=== PATIENT | female | born 1955 | race Caucasian/White ===

== ENCOUNTER 2018-01-27 20:11 | Inpatient (IN) ==
[2018-01-27] MEDS ORDERED: Ketorolac 30 MG/ML VIAL IVP PRN (22:36)
[2018-01-27] MEDS ORDERED: Acetaminophen 325 MG TABLET PO PRN (22:36)
[2018-01-27] MEDS ORDERED: Naloxone 0.4 MG/ML INJ IVP PRN (22:36)
[2018-01-27] MEDS ORDERED: *HR* Promethazine 25 MG/ML VIAL IVP PRN ×2 (22:36→23:00)
[2018-01-27] MEDS ORDERED: Ondansetron 4 MG/2 ML VIAL IVP PRN (22:36)
[2018-01-27] MEDS ORDERED: Ipratropium/Albuterol Neb 3 ML IH PRN (22:42)
[2018-01-27] MEDS ORDERED: 0.9 % Sodium Chloride 1,000 ML IVC SCH (22:45)
--- NOTE | 2018-01-27 22:47 | Internal Med History&Physical ---
Date of Encounter: 01/27/18 Time of Encounter: 22:20 Assessment and Plan (1) Pyelonephritis Current visit: Yes Status: Acute Patient has left-sided flank pain, nausea, vomiting, increased urination frequency. Consider pyelonephritis. - Rocephin iv started in [facility], will continue - Continue IV fluid - Urology consult for ureteral stone (2) Ureteral stone Current visit: Yes Status: Acute Urology consult. Keep patient nothing by mouth from midnight for possible procedure. - Continue IV fluid, pain medication for pain control. - Closely monitor patient in telemetric (3) COPD (chronic obstructive pulmonary disease) Current visit: Yes Status: Acute Stable. Continue DuoNeb when necessary. Continue home medication after verification Qualifiers: COPD type: emphysema Emphysema type: unspecified Qualified Code(s): J43.9 - Emphysema, unspecified (4) CHF (congestive heart failure) Current visit: Yes Status: Acute Appears euvolemic at this point. Careful IV fluid hydration as patient has nausea vomiting. Closely monitor patient Qualifiers: Heart failure type: unspecified Heart failure chronicity: chronic Qualified Code(s): I50.9 - Heart failure, unspecified (5) Hypertension Current visit: Yes Status: Acute Place patient on hydralazine IV when necessary. Resume home medication after verification Qualifiers: Hypertension type: essential hypertension Qualified Code(s): I10 - Essential (primary) hypertension (6) DVT prophylaxis Current visit: Yes Status: Acute EPCD, may start anticoagulation after surgery (7) Hypokalemia Current visit: Yes Status: Acute Potassium supplement has been given in emergency room. Continue symptomatic treatment for nausea and vomiting. Repeat BMP in a.m. Internal Medicine - H&P: HPI Chief complaint: Left flank pain Admitted From: Home Plans for Post Hospital Care: Home History of present illness: Ms. Garner is a 62 year old female with history of COPD asthma, hypertension, CHF, presented to [facility] for left flank pain since this afternoon. Patient has nausea, vomiting. The vomiting are yellowish fluid. Patient denies a fever. Patient has no dysuria or burning sensation on urination. She do report increased frequency of urination. In the [facility], CT abdomen shows left side ureteral stone 5 mm and a nonobstructive stone 9 mm. patient also was found hypokalemia with potassium 2.6. Patient was treated with Rocephin 2 g and by mouth potassium 50mEq, and the pain medication and IV fluid. Patient was transferred to our hospital for further management. Urology consult was called by Jean Marie BURLESON through [employer] management three-way conversation. Past Med Surg Social Fam HX - Past Medical History Medical history: asthma, CHF, COPD, hypertension - Past Surgical History Surgical History: cholecystectomy, hysterectomy - Family History Mother History Unknown: Yes Internal Medicine - H&P: Meds 3 Allergy/AdvReac Type Severity Reaction Status Date / Time ibuprofen [From Motrin] Allergy Hives Verified 01/27/18 22:52 Penicillins Allergy Hives Verified 01/27/18 22:52 divalproex sodium AdvReac Anxiety Verified 01/27/18 22:52 [From Depakote] tramadol [From Ultram] AdvReac Seizure Verified 01/27/18 22:52 IVP dye Allergy Difficulty Uncoded 01/27/18 22:52 Breathing All Systems PM: A 10-system review of systems was performed and is negative for pertinent findings except as documented above in the HPI. - Constitutional Vitals: Temp Pulse Resp BP Pulse Ox 97.6 F 96 18 163/106 97 01/27/18 22:10 01/27/18 22:10 01/27/18 22:10 01/27/18 22:10 01/27/18 22:10 General appearance: Present: A&O X 3, severe distress, answers questions appropriately - Head Head exam: Present: atraumatic, normocephalic - Eye Eye exam: Present: PERRL, conjuntiva pink, sclera anicteric Pupils: Present: PERRL - Neck Neck exam general surgery: Present: supple, trachea midline. Absent: lymphadenopathy - Respiratory Respiratory exam: Present: CTAB. Absent: accessory muscle use, rales, rhonchi, wheezes - Cardiovascular Cardiovascular exam: Present: RRR, +S1, +S2. Absent: diastolic murmur, gallop, rubs, systolic murmur - GI/Abdominal GI/Abdominal exam: Present: normal bowel sounds, soft, tenderness (Tenderness on left lower quadrant, no guarding or rebound), no peritoneal signs. Absent: distended Additional comments: CVAT positive bilaterally - Extremities Exam Extremities exam: Present: warm, radial pulses palpable and symmetrical. Absent : calf tenderness, cyanotic, pedal edema Additional comments: Patient has a chronic right shoulder pain on sling - Neurological Exam Neurological exam: Present: CN II-XII intact, oriented X3, no focal deficits. Absent: pronater drift, facial droop, speech deficit - Skin Skin exam: Present: dry, intact
[2018-01-27] MEDS ORDERED: Potassium Chloride 40 MEQ, Lidocaine 1% 2 ML in D5% in Water 500 ML IVPB ONE (22:58)
[2018-01-27] MEDS: OXYCODONE Oral CONC 10 MG/0.5 ML ORAL.SYG SL PRN (23:25)
[2018-01-28] MEDS: Ketorolac 30 MG/ML VIAL IVP PRN ×3 (01:22→18:55)
[2018-01-28 05:02] LABS: Basophils % 0.1 %; Hematocrit 33.8 % (35.3-44.9); Hemoglobin 10.8 g/dL (11.5-15.4); INR 1.1; Immature Granulocytes % 0.5 % (0-4); Lymphocytes # 0.5 K/mcL (0.6-4.6); Lymphocytes % 2.7 %; Mean Corpuscular Hemoglobin 27.4 pg (28.0-33.3); Mean Corpuscular Volume 85.8 fL (83.0-100.0); Mean Platelet Volume 9.3 fL (9.4-12.4); Monocytes % 9.3 %; Neutrophils # 15.5 K/mcL (1.6-8.9); Platelet Count 221 K/mcL (140-400); Prothrombin Time 11.5 Seconds (9.4-12.1); Red Blood Count 3.94 M/mcL (3.82-4.97); Red Cell Distribution Width 15.9 % (11.5-14.5); Segmented Neutrophils % 87.4 %
[2018-01-28 05:17] LABS: Calcium 7.6 mg/dL (8.6-10.3); Potassium 3.6 mEq/L (3.5-5.1)
[2018-01-28 05:25] LABS: Monocytes # 1.7 K/mcL (0.0-1.3)
[2018-01-28 05:26] LABS: Platelet Estimate Normal (Normal)
--- NOTE | 2018-01-28 08:57 | Urology - Consult Note ---
Date of Encounter: 01/28/18 Time of Encounter: 08:55 - Assessment and Plan (1) Nausea & vomiting Current Visit: Yes Status: Acute Assessment and plan: This is much improved at this time with IV fluids and nausea medication. Qualifiers: Vomiting type: unspecified Vomiting Intractability: non-intractable Qualified Code(s): R11.2 - Nausea with vomiting, unspecified (2) Elevated serum creatinine Current Visit: Yes Status: Acute Assessment and plan: Slight elevation most likely secondary to dehydration from vomiting as well as obstruction from left UPJ stone will improve with IV fluids as well as ureteral stent today. (3) Pyelonephritis Current Visit: Yes Status: Acute Assessment and plan: Continue with broad-spectrum antibiotics at this time until cultures return. (4) Ureteral stone Current Visit: Yes Status: Acute Assessment and plan: Plan on cystoscopy and left ureteral stent placement in the operating room today. Urology CN:ANNETTE Consult date: 01/28/18 Reason for consult Urology: Hydronephrosis Requesting physician: Hubert Shipman History of present illness: Jb is a 62-year-old female who was transferred from an outside facility secondary to obstructing left UPJ stone. Patient has had persistent nausea and vomiting over the past day. Her pain was a 10 out of 10 in nature located in her left kidney with no radiation. This pain is currently controlled. Patient was also found to have a low potassium as well as an elevated WBC count. Patient has multiple medical problems mostly related to smoking history. Patient has had kidney stones in the past underwent some sort of procedure last summer at an outside facility. Patient is unsure what surgery she had done. CT scan was personally reviewed which revealed a left 3-4 mm UPJ stone with a larger left renal pelvis stone. Past Med Surg Social Fam HX - Past Medical History Medical history: asthma, CHF, COPD, hypertension Psychiatric history: no psych history - Past Surgical History Surgical History: cholecystectomy, hysterectomy - Social History Smoking Status: Former smoker Smokeless Tobacco Status: No Alcohol use: none Drug use: none - Family History Mother History Unknown: Yes Medications and Allergies Albuterol Neb [Proventil Neb] 2.5 mg IH Q4-6H PRN 01/28/18 [History] Amitriptyline HCl 100 mg PO HS 01/28/18 [History] Atorvastatin [Lipitor] 40 mg PO HS 01/28/18 [History] Ergocalciferol (VITAMIN D2) [Vitamin D2] 50,000 unit PO QWEEK 01/28/18 [History] Fluticasone Propionate [Flovent Hfa] 2 puff IH BID 01/28/18 [History] Folic Acid 1 mg PO DAILY 01/28/18 [History] Furosemide [Lasix] 40 mg PO DAILY 01/28/18 [History] Gabapentin [Neurontin] 300 mg PO BID 01/28/18 [History] Montelukast [Singulair] 10 mg PO DAILY 01/28/18 [History] Nabumetone 750 mg PO QID PRN 01/28/18 [History] Omeprazole [PriLOSEC] 20 mg PO DAILY 01/28/18 [History] Theophylline Anhydrous [Theophylline] 400 mg PO DAILY 01/28/18 [History] amLODIPine [Norvasc] 5 mg PO DAILY 01/28/18 [History] 3 Allergy/AdvReac Type Severity Reaction Status Date / Time ibuprofen [From Motrin] Allergy Hives Verified 01/27/18 22:52 Penicillins Allergy Hives Verified 01/27/18 22:52 divalproex sodium AdvReac Anxiety Verified 01/27/18 22:52 [From Depakote] tramadol [From Ultram] AdvReac Seizure Verified 01/27/18 22:52 IVP dye Allergy Difficulty Uncoded 01/27/18 22:52 Breathing Review of Systems - Constitutional no chills, no fever(s) - EENT Nose, mouth and throat: no dizziness, no sore throat - Cardiovascular no chest pain, no diaphoresis - Respiratory no cough, no dyspnea - Gastrointestinal abdominal pain, nausea, vomiting - Genitourinary Genitourinary: as per HPI, no dysuria - Musculoskeletal back pain - Integumentary no lesions, no swelling - Neurological no confusion, no weakness - Psychiatric no anxiety, no confusion - Hematologic/Lymphatic no easy bleeding, no lymphadenopathy - Allergic/Immunologic no throat swelling, no wheezing Exam Initial Vital Signs Temp Pulse Resp BP Pulse Ox 97.6 F 96 18 163/106 97 01/27/18 22:10 01/27/18 22:10 01/27/18 22:10 01/27/18 22:10 01/27/18 22:10 General/Neuological: alert and oriented x 3 Eyes: normal pupils, non-icteric Neck: no lymphadenopathy noted, supple to touch Resp: good air movement. clear to auscultation CV: tachy rate and reg rhythm, no JVD, no aortic enlargement on palpation of abdomen ABD: soft, nontender, no masses palpated, good bowel sounds Back: no pain on percussion bilaterally Skin: no rashes noted, no diaphoresis Musculoskeletal: normal gait, FROMx4 Urology Results - Labs 01/28/18 04:27 01/28/18 04:27 Abnormal lab results WBC 17.7 K/mcL (4.3-11.1) H 01/28/18 04:27 Hgb 10.8 g/dL (11.5-15.4) L 01/28/18 04:27 Hct 33.8 % (35.3-44.9) L 01/28/18 04:27 MCH 27.4 pg (28.0-33.3) L 01/28/18 04:27 RDW 15.9 % (11.5-14.5) H 01/28/18 04:27 MPV 9.3 fL (9.4-12.4) L 01/28/18 04:27 Neutrophils # 15.5 K/mcL (1.6-8.9) H 01/28/18 04:27 Lymphocytes # 0.5 K/mcL (0.6-4.6) L 01/28/18 04:27 Monocytes # 1.7 K/mcL (0.0-1.3) H 01/28/18 04:27 Carbon Dioxide 22 mEq/L (23-29) L 01/28/18 04:27 Creatinine 1.22 mg/dL (0.60-1.20) H 01/28/18 04:27 Est GFR ( Amer) 54 (> 60) L 01/28/18 04:27 Est GFR (Non-Af Amer) 45 (> 60) L 01/28/18 04:27 Glucose 158 mg/dL (70-105) H 01/28/18 04:27 Calcium 7.6 mg/dL (8.6-10.3) L 01/28/18 04:27 Diabetes panel 01/28/18 Range/Units 04:27 Sodium 136 (136-145) mEq/L Potassium 3.6 (3.5-5.1) mEq/L Chloride 106 (98-107) mEq/L Carbon Dioxide 22 L (23-29) mEq/L BUN 16 (8-23) mg/dL Creatinine 1.22 H (0.60-1.20) mg/dL Glucose 158 H (70-105) mg/dL Calcium 7.6 L (8.6-10.3) mg/dL Calcium panel 01/28/18 Range/Units 04:27 Calcium 7.6 L (8.6-10.3) mg/dL Pituitary panel 01/28/18 Range/Units 04:27 Sodium 136 (136-145) mEq/L Potassium 3.6 (3.5-5.1) mEq/L Chloride 106 (98-107) mEq/L Carbon Dioxide 22 L (23-29) mEq/L BUN 16 (8-23) mg/dL Creatinine 1.22 H (0.60-1.20) mg/dL Glucose 158 H (70-105) mg/dL Calcium 7.6 L (8.6-10.3) mg/dL Adrenal panel 01/28/18 Range/Units 04:27 Sodium 136 (136-145) mEq/L Potassium 3.6 (3.5-5.1) mEq/L Chloride 106 (98-107) mEq/L Carbon Dioxide 22 L (23-29) mEq/L BUN 16 (8-23) mg/dL Creatinine 1.22 H (0.60-1.20) mg/dL Glucose 158 H (70-105) mg/dL Calcium 7.6 L (8.6-10.3) mg/dL All other labs normal. - Imaging CT scan - abdomen: image reviewed CT scan - pelvis: image reviewed Consult Discharge Plan - Plan Referrals: NONE,PCP [Primary Care Provider] -
[2018-01-28] MEDS ORDERED: cefTRIAXone 1,000 MG in Water for inj. (sterile) 20 ML 10 ML IVP SCH (09:00)
[2018-01-28] MEDS: OXYCODONE Oral CONC 10 MG/0.5 ML ORAL.SYG SL PRN (12:49)
--- NOTE | 2018-01-28 13:00 | Anesthesia Evaluation PreOp ---
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 shoulder ( In sling),) Anesthesia History: No Prior Anesthetic Complications, Past Anesthesia (, KINZA) : No (KINZA) Alcohol Use: none Drug use: none Medications and Allergies Albuterol Neb [Proventil Neb] 2.5 mg IH Q4-6H PRN 01/28/18 [History] Amitriptyline HCl 100 mg PO HS 01/28/18 [History] Atorvastatin [Lipitor] 40 mg PO HS 01/28/18 [History] Ergocalciferol (VITAMIN D2) [Vitamin D2] 50,000 unit PO QWEEK 01/28/18 [History] Fluticasone Propionate [Flovent Hfa] 2 puff IH BID 01/28/18 [History] Folic Acid 1 mg PO DAILY 01/28/18 [History] Furosemide [Lasix] 40 mg PO DAILY 01/28/18 [History] Gabapentin [Neurontin] 300 mg PO BID 01/28/18 [History] Montelukast [Singulair] 10 mg PO DAILY 01/28/18 [History] Nabumetone 750 mg PO QID PRN 01/28/18 [History] Omeprazole [PriLOSEC] 20 mg PO DAILY 01/28/18 [History] Theophylline Anhydrous [Theophylline] 400 mg PO DAILY 01/28/18 [History] amLODIPine [Norvasc] 5 mg PO DAILY 01/28/18 [History] 3 Allergy/AdvReac Type Severity Reaction Status Date / Time ibuprofen [From Motrin] Allergy Hives Verified 01/27/18 22:52 Penicillins Allergy Hives Verified 01/27/18 22:52 divalproex sodium AdvReac Anxiety Verified 01/27/18 22:52 [From Depakote] tramadol [From Ultram] AdvReac Seizure Verified 01/27/18 22:52 IVP dye Allergy Difficulty Uncoded 01/27/18 22:52 Breathing - Meds/Allergy Pre-op Review Medications Reviewed: Yes Allergies Reviewed: Yes Beta Blockers on Current Med List: No Anesthesia Results - Labs 01/28/18 04:27 01/28/18 04:27 Anesthesia Exam Vital Signs/O2 Sat, Most Current Temp Pulse Resp BP Pulse Ox 98.1 F 93 18 101/64 95 01/28/18 11:31 01/28/18 11:31 01/28/18 11:31 01/28/18 11:31 01/28/18 11:31 NPO (# of Hours): > 8 hrs Pain Scale: 0 Pain Scale Used: Numeric (1 - 10) - HEENT Pupil (Motor): Pupils equal, EOMI Mallampati: II Teeth: Normal Oral Opening: Greater than 3 - METEOROLOGICAL ENGINEER LOC: Oriented METEOROLOGICAL ENGINEER Motor: Normal RUE, Normal LUE, Normal RLE, Normal LLE, Normal Face METEOROLOGICAL ENGINEER Sensory: Normal: RUE, LUE, RLE, LLE, Face - Cardiac Rhythm: Regular Murmur: None JVD: No Carotid Bruit: No - Pulmonary Breath Sounds: bilateral Clear Respiratory Effort: Symmetrical Anesthesia Assess/Plan ASA Score: 3 Modified Barbara Scale for Level of Consciousness: Cooperative, oriented, and tranquil Anesthetic Plan: General Autologous Blood: Yes Monitoring Plan: Standard Monitors Recovery Plan: PACU
[2018-01-28] MEDS ORDERED: *HR* FentaNYL (PF) 100 MCG/2 ML VIAL ONE (13:24)
[2018-01-28] MEDS ORDERED: *HR* Midazolam HCl 2 MG/2 ML VIAL ONE (13:25)
[2018-01-28] MEDS ORDERED: *HR* Propofol 200 MG/20 ML VIAL IVP ONE (13:25)
[2018-01-28] MEDS ORDERED: Dexamethasone 4 MG/ML VIAL ONE (13:26)
[2018-01-28] MEDS ORDERED: Lidocaine -MPF 2% 2 ML VIAL ONE (13:26)
[2018-01-28] MEDS ORDERED: Ondansetron 4 MG/2 ML VIAL ONE (13:26)
[2018-01-28] MEDS ORDERED: Isovue-300 50 ML VIAL IVP ONE (13:38)
[2018-01-28] MEDS ORDERED: Neostigmine Methylsulfate 3 MG/3 ML SYRINGE ONE (14:04)
[2018-01-28] MEDS ORDERED: *HR* OxyCODONE Immed Rel 5 MG TABLET PO PRN (14:05)
--- NOTE | 2018-01-28 14:13 | Operative Note ---
Date of procedure: 01/28/18 Pre-op diagnosis: left ureteral stones Post-op diagnosis: other (no stones found) Procedure: Left diagnostic ureteroscopy Anesthesia: MARIBELA Surgeon: Jere Davis Was there an medical practice assistant present: No Estimated blood loss (cc): 0 Specimen: none Condition: stable Disposition: PACU Procedure in Detail: All risk, benefits, alternatives were discussed with the patient in the holding area. The consent was reviewed. Patient agreed to proceed with the scheduled procedure. She was prepped and draped in normal sterile fashion. Timeout procedure performed. I then inserted the short semirigid ureteroscope into the patient's urethra and advanced into the bladder. The left ureteral orifice was red and irritated. I was easily able to cannulate this. I placed the ureteroscope all the way up to the renal pelvis with no stones seen. This was consistent with her possible recent passage of some ureteral stones. Bladder was drained and procedure was ended. Patient taken to PACU in stable condition
--- NOTE | 2018-01-28 14:17 | Event Note ---
Date of Encounter: 01/28/18 Time of Encounter: 14:17 Ok for patient to be discharged from urology standpoint. Patient will need f/u in 3-4 weeks.
[2018-01-28] MEDS ORDERED: Ondansetron 4 MG/2 ML VIAL IVP PRN (15:02)
[2018-01-28] MEDS ORDERED: Naloxone 0.4 MG/ML INJ IVP PRN (15:02)
[2018-01-28] MEDS ORDERED: 0.9 % Sodium Chloride 1,000 ML IVC SCH (15:02)
[2018-01-28] MEDS ORDERED: Acetaminophen 325 MG TABLET PO PRN (15:02)
[2018-01-28] MEDS ORDERED: Ipratropium/Albuterol Neb 3 ML IH PRN (15:02)
[2018-01-28] MEDS ORDERED: *HR* Promethazine 25 MG/ML VIAL IVP PRN (15:02)
--- NOTE | 2018-01-28 15:42 | Internal Med Progress Note ---
Date of Encounter: 01/28/18 Time of Encounter: 15:39 - Assessment and plan (1) Sepsis Current Visit: Yes Status: Acute Assessment and plan: Sepsis secondary to possible UTI Urine culture was sent Continue Rocephin day 2 Continue IV fluids, hold Lasix Qualifiers: Sepsis type: sepsis due to unspecified organism Qualified Code(s): A41.9 - Sepsis, unspecified organism (2) Ureteral stone Current Visit: Yes Status: Acute Assessment and plan: Left ureteral obstructing stone, passed Urology was consulted, cystoscopy was performed, no stone was evidence but there was redness on the left ureteral orifice consistent with possible recent passage of ureteral stones. CT abdomen at [facility] ER showed left side ureteral stone 5 mm and a nonobstructive stone 9 mm. (3) UTI (urinary tract infection) Current Visit: Yes Status: Acute Qualifiers: Urinary tract infection type: acute cystitis Hematuria presence: without hematuria Qualified Code(s): N30.00 - Acute cystitis without hematuria (4) CHF (congestive heart failure) Current Visit: Yes Status: Acute Assessment and plan: Possible history of diastolic CHF Hold Lasix for now Qualifiers: Heart failure type: diastolic Heart failure chronicity: chronic Qualified Code(s): I50.32 - Chronic diastolic (congestive) heart failure (5) COPD (chronic obstructive pulmonary disease) Current Visit: Yes Status: Acute Assessment and plan: No exacerbation Qualifiers: COPD type: emphysema Emphysema type: unspecified Qualified Code(s): J43.9 - Emphysema, unspecified (6) Hypertension Current Visit: Yes Status: Acute Assessment and plan: May continue amlodipine Qualifiers: Hypertension type: essential hypertension Qualified Code(s): I10 - Essential (primary) hypertension - Subjective Interval history: Chronic back pain, left flank pain has improved, denies any nausea, no vomiting , no abdominal pain, was complaining of some dysuria, denies fevers, chest pain or shortness of breath - Constitutional Vitals: Temp Pulse Resp BP Pulse Ox 98.0 F 91 18 133/85 96 01/28/18 15:25 01/28/18 15:25 01/28/18 15:25 01/28/18 15:25 01/28/18 15:25 General appearance: Present: A&O X 3, severe distress, answers questions appropriately - Head Head exam: Present: atraumatic, normocephalic - Eye Eye exam: Present: PERRL, conjuntiva pink, sclera anicteric Pupils: Present: PERRL - Neck Neck exam general surgery: Present: supple, trachea midline. Absent: lymphadenopathy - Respiratory Respiratory exam: Present: CTAB. Absent: accessory muscle use, rales, rhonchi, wheezes - Cardiovascular Cardiovascular exam: Present: RRR, +S1, +S2. Absent: diastolic murmur, gallop, rubs, systolic murmur - GI/Abdominal GI/Abdominal exam: Present: normal bowel sounds, soft, no peritoneal signs. Absent: distended, tenderness - Extremities Exam Extremities exam: Present: warm, radial pulses palpable and symmetrical. Absent : calf tenderness, cyanotic, pedal edema - Neurological Exam Neurological exam: Present: CN II-XII intact, oriented X3, no focal deficits. Absent: pronater drift, facial droop, speech deficit - Skin Skin exam: Present: dry, intact Internal Medicine: Result - Labs CBC & Chem 7: 01/28/18 04:27 01/28/18 04:27 Labs: Short CBC 01/28/18 Range/Units 04:27 WBC 17.7 H (4.3-11.1) K/mcL Hgb 10.8 L (11.5-15.4) g/dL Hct 33.8 L (35.3-44.9) % Plt Count 221 (140-400) K/mcL Neutrophils # 15.5 H (1.6-8.9) K/mcL BMP 01/28/18 04:27 Sodium 136 Potassium 3.6 Chloride 106 Carbon Dioxide 22 L BUN 16 Creatinine 1.22 H Glucose 158 H Calcium 7.6 L - ABG Interpretation ABG results: PT/INR, D-dimer PT 11.5 Seconds (9.4-12.1) 01/28/18 04:27 Consult Discharge Plan - Plan Referrals: NONE,PCP [Primary Care Provider] -
[2018-01-28] MEDS: Gabapentin 300 MG CAPSULE PO SCH (21:15)
[2018-01-29 05:14] LABS: Hematocrit 35.1 % (35.3-44.9); Hemoglobin 11.3 g/dL (11.5-15.4); Mean Corpuscular HGB Conc 32.2 g/dL (31.6-35.5); Mean Corpuscular Hemoglobin 27.6 pg (28.0-33.3); Mean Corpuscular Volume 85.8 fL (83.0-100.0); Mean Platelet Volume 9.1 fL (9.4-12.4); Platelet Count 231 K/mcL (140-400); Red Blood Count 4.09 M/mcL (3.82-4.97); Red Cell Distribution Width 16.3 % (11.5-14.5)
[2018-01-29 05:38] LABS: BUN/Creatinine Ratio 19 (6-26); Blood Urea Nitrogen 19 mg/dL (8-23); Calcium 7.5 mg/dL (8.6-10.3); Carbon Dioxide 23 mEq/L (23-29); Chloride 109 mEq/L (98-107); Glucose 134 mg/dL (70-105); Osmolality,Calculated 292 (280-300); Potassium 3.9 mEq/L (3.5-5.1); Sodium 139 mEq/L (136-145); eGFR For African Americans > 60 (> 60); eGFR For Non-African Americans 57 (> 60)
[2018-01-29] MEDS ORDERED: *HR* Propofol 200 MG/20 ML VIAL IVP ONE (09:16)
[2018-01-29] MEDS: cefTRIAXone 1,000 MG in Water for inj. (sterile) 20 ML 10 ML IVP SCH (09:32)
[2018-01-29] MEDS: Gabapentin 300 MG CAPSULE PO SCH ×2 (09:33→21:24)
[2018-01-29] MEDS: amLODIPine 5 MG TABLET PO SCH (09:33)
[2018-01-29] MEDS: OXYCODONE Oral CONC 10 MG/0.5 ML ORAL.SYG SL PRN ×2 (09:34→16:14)
--- NOTE | 2018-01-29 11:39 | Internal Med Progress Note ---
Date of Encounter: 01/29/18 Time of Encounter: 11:37 - Assessment and plan (1) Sepsis Current Visit: Yes Status: Acute Assessment and plan: Sepsis secondary to possible UTI Urine culture was sent, growing gram positive cocci and rods Discussed options with the patient, she prefers to wait one more day until culture final report is available. Continue Rocephin day 3 Continue IV fluids, hold Lasix Qualifiers: Sepsis type: sepsis due to unspecified organism Qualified Code(s): A41.9 - Sepsis, unspecified organism (2) Ureteral stone Current Visit: Yes Status: Acute Assessment and plan: Left ureteral obstructing stone, passed Urology was consulted, cystoscopy was performed, no stone was evidence but there was redness on the left ureteral orifice consistent with possible recent passage of ureteral stones. CT abdomen at [facility] ER showed left side ureteral stone 5 mm and a nonobstructive stone 9 mm. (3) UTI (urinary tract infection) Current Visit: Yes Status: Acute Qualifiers: Urinary tract infection type: acute cystitis Hematuria presence: without hematuria Qualified Code(s): N30.00 - Acute cystitis without hematuria (4) CHF (congestive heart failure) Current Visit: Yes Status: Acute Assessment and plan: Possible history of diastolic CHF Hold Lasix for now Qualifiers: Heart failure type: diastolic Heart failure chronicity: chronic Qualified Code(s): I50.32 - Chronic diastolic (congestive) heart failure (5) COPD (chronic obstructive pulmonary disease) Current Visit: Yes Status: Acute Assessment and plan: No exacerbation Qualifiers: COPD type: emphysema Emphysema type: unspecified Qualified Code(s): J43.9 - Emphysema, unspecified (6) Hypertension Current Visit: Yes Status: Acute Assessment and plan: continue amlodipine Qualifiers: Hypertension type: essential hypertension Qualified Code(s): I10 - Essential (primary) hypertension - Subjective Interval history: Feeling very weak. Chronic back pain, left flank pain has improved, denies any nausea, no vomiting , no abdominal pain, was complaining of some dysuria, denies fevers, chest pain or shortness of breath - Constitutional Vitals: Temp Pulse Resp BP Pulse Ox 97.9 F 89 12 129/83 97 01/29/18 11:03 01/29/18 11:03 01/29/18 11:03 01/29/18 11:03 01/29/18 11:03 General appearance: Present: A&O X 3, severe distress, answers questions appropriately Exam: - Head Head exam: Present: atraumatic, normocephalic - Eye Eye exam: Present: PERRL, conjuntiva pink, sclera anicteric Pupils: Present: PERRL - Neck Neck exam general surgery: Present: supple, trachea midline. Absent: lymphadenopathy - Respiratory Respiratory exam: Present: CTAB. Absent: accessory muscle use, rales, rhonchi, wheezes - Cardiovascular Cardiovascular exam: Present: RRR, +S1, +S2. Absent: diastolic murmur, gallop, rubs, systolic murmur - GI/Abdominal GI/Abdominal exam: Present: normal bowel sounds, soft, no peritoneal signs. Absent: distended, tenderness - Extremities Exam Extremities exam: Present: warm, radial pulses palpable and symmetrical. Absent : calf tenderness, cyanotic, pedal edema - Neurological Exam Neurological exam: Present: CN II-XII intact, oriented X3, no focal deficits. Absent: pronater drift, facial droop, speech deficit - Skin Skin exam: Present: dry, intact Internal Medicine: Result - Labs CBC & Chem 7: 01/29/18 04:50 01/29/18 04:50 Labs: Short CBC 01/29/18 Range/Units 04:50 WBC 11.3 H (4.3-11.1) K/mcL Hgb 11.3 L (11.5-15.4) g/dL Hct 35.1 L (35.3-44.9) % Plt Count 231 (140-400) K/mcL BMP 01/29/18 04:50 Sodium 139 Potassium 3.9 Chloride 109 H Carbon Dioxide 23 BUN 19 Creatinine 0.99 Glucose 134 H Calcium 7.5 L - ABG Interpretation ABG results: PT/INR, D-dimer PT 11.5 Seconds (9.4-12.1) 01/28/18 04:27 - VTE Documentation of Mechanical Device: Intermittent pneumatic compression device Consult Discharge Plan - Plan Referrals: NONE,PCP [Primary Care Provider] -
[2018-01-29] MEDS: Ketorolac 30 MG/ML VIAL IVP PRN ×2 (12:37→20:12)
[2018-01-30] MEDS: amLODIPine 5 MG TABLET PO SCH (08:37)
[2018-01-30] MEDS: Gabapentin 300 MG CAPSULE PO SCH (08:37)
[2018-01-30] MEDS: cefTRIAXone 1,000 MG in Water for inj. (sterile) 20 ML 10 ML IVP SCH (08:39)
--- NOTE | 2018-01-30 09:56 | Discharge Summary ---
Orders not resulted at time of discharge: Pending orders 01/27/18 23:31 Culture,Urine [] Stat Date of Encounter: 01/30/18 Time of Encounter: 09:54 - Discharge Diagnosis (1) Sepsis Priority: Primary Status: Acute Comments: Sepsis secondary to possible UTI Qualifiers: Sepsis type: sepsis due to unspecified organism Qualified Code(s): A41.9 - Sepsis, unspecified organism (2) Ureteral stone Priority: Primary Status: Acute Comments: Left ureteral obstructing stone, passed (3) UTI (urinary tract infection) Priority: Primary Status: Acute Qualifiers: Urinary tract infection type: acute cystitis Hematuria presence: without hematuria Qualified Code(s): N30.00 - Acute cystitis without hematuria (4) CHF (congestive heart failure) Priority: Secondary Status: Acute Comments: Possible history of diastolic CHF Qualifiers: Heart failure type: diastolic Heart failure chronicity: chronic Qualified Code(s): I50.32 - Chronic diastolic (congestive) heart failure (5) COPD (chronic obstructive pulmonary disease) Priority: Secondary Status: Acute Qualifiers: COPD type: emphysema Emphysema type: unspecified Qualified Code(s): J43.9 - Emphysema, unspecified (6) Hypertension Priority: Secondary Status: Acute Qualifiers: Hypertension type: essential hypertension Qualified Code(s): I10 - Essential (primary) hypertension Hospital course: Ms. Garner is a 62 year old female with history of COPD asthma, hypertension, possible diastolic CHF, presented to [facility] for left flank pain. Had nausea , vomiting yellowish fluid. Denied a fever. Patient has no dysuria or burning sensation on urination. She did report increased frequency of urination. In the [facility], CT abdomen showed a left side ureteral stone 5 mm and a nonobstructive stone 9 mm. Was found to have hypokalemia with potassium of 2.6. Was treated with Rocephin 2 g and oral potassium. Urology consult was called Received 4 days of Rocephin. Urology was consulted, cystoscopy was performed for a possible Left ureteral obstructing stone, no stone was evidenced but there was redness on the left ureteral orifice consistent with possible recent passage of ureteral stones. Urine culture was sent, growing gram positive cocci , staph, enterococcus and corynebactrium. Sample was likely contamined. Discussed options with the patient, she prefers to be discharged on an oral antibiotic like Bactrim, option to wait until tomorrow for the final culture report was discussed but she prefers to go home at this point. - Time Spent with Patient Total time spent providing and/or coordinating discharge services: Greater than 30 minutes (40 min) - Discharge Medications Prescriptions: Sulfamethoxazole/Trimeth DS [Bactrim Ds] 1 each PO BID #10 tablet Home Medications: Albuterol Neb [Proventil Neb] 2.5 mg IH Q4-6H PRN 01/28/18 [History] Amitriptyline HCl 100 mg PO HS 01/28/18 [History] Atorvastatin [Lipitor] 40 mg PO HS 01/28/18 [History] Ergocalciferol (VITAMIN D2) [Vitamin D2] 50,000 unit PO QWEEK 01/28/18 [History] Fluticasone Propionate [Flovent Hfa] 2 puff IH BID 01/28/18 [History] Folic Acid 1 mg PO DAILY 01/28/18 [History] Furosemide [Lasix] 40 mg PO DAILY 01/28/18 [History] Gabapentin [Neurontin] 300 mg PO BID 01/28/18 [History] Montelukast [Singulair] 10 mg PO DAILY 01/28/18 [History] Nabumetone 750 mg PO QID PRN 01/28/18 [History] Omeprazole [PriLOSEC] 20 mg PO DAILY 01/28/18 [History] Theophylline Anhydrous [Theophylline] 400 mg PO DAILY 01/28/18 [History] amLODIPine [Norvasc] 5 mg PO DAILY 01/28/18 [History] Sulfamethoxazole/Trimeth DS [Bactrim Ds] 1 each PO BID #10 tablet 01/30/18 [Rx] Allergies/Adverse Reactions: 3 Allergy/AdvReac Type Severity Reaction Status Date / Time ibuprofen [From Motrin] Allergy Hives Verified 01/27/18 22:52 Penicillins Allergy Hives Verified 01/27/18 22:52 divalproex sodium AdvReac Anxiety Verified 01/27/18 22:52 [From Depakote] tramadol [From Ultram] AdvReac Seizure Verified 01/27/18 22:52 IVP dye Allergy Difficulty Uncoded 01/27/18 22:52 Breathing Date of admission: 01/27/18 22:36 Primary care physician: PCP NONE Consults: 01/27/18 22:41 Consult to Urology [CONS] Routine Consulting Provider: Urology [facility] Reason for Consult: Ureteral stone on left side. Dr Davis called by [facility] Call Completed: Yes - Constitutional Vitals: Temp Pulse Resp BP Pulse Ox 98.2 F 84 18 148/96 95 01/30/18 07:02 01/30/18 07:02 01/30/18 07:02 01/30/18 07:02 01/30/18 07:02 General appearance: Present: A&O X 3, severe distress, answers questions appropriately - Head Head exam: Present: atraumatic, normocephalic - Eye Eye exam: Present: PERRL, conjuntiva pink, sclera anicteric Pupils: Present: PERRL - Neck Neck exam general surgery: Present: supple, trachea midline. Absent: lymphadenopathy - Respiratory Respiratory exam: Present: CTAB. Absent: accessory muscle use, rales, rhonchi, wheezes - Cardiovascular Cardiovascular exam: Present: RRR, +S1, +S2. Absent: diastolic murmur, gallop, rubs, systolic murmur - GI/Abdominal GI/Abdominal exam: Present: normal bowel sounds, soft, no peritoneal signs. Absent: distended, tenderness - Extremities Exam Extremities exam: Present: warm, radial pulses palpable and symmetrical. Absent : calf tenderness, cyanotic, pedal edema Additional comments: right upper extremity on a sling - Neurological Exam Neurological exam: Present: CN II-XII intact, oriented X3, no focal deficits. Absent: pronater drift, facial droop, speech deficit - Skin Skin exam: Present: dry, intact - Patient Status Disposition: Home, Self-Care Condition: Good Overall status at discharge: patient is back to baseline - Discharge Instructions Follow Up With: NONE,PCP [Primary Care Provider] - Additional Instructions: Follow up with primary care physician, follow up with urology in 3-4 weeks. COntinue Bactrim for 5 days - Diet and Activity Activity: increase activity as tolerated Diet: low fat, low cholesterol - VTE Documentation of Mechanical Device: Intermittent pneumatic compression device
[2018-01-30] MEDS ORDERED: Sulfamethoxazole/Trimeth DS 1 EACH TABLET PO SCH (10:00)
[2018-01-30 10:20] VITALS: BP 145/91
== END 2018-01-30 14:44 | disposition home or self-care (01) | DRG 720 ==
LOC: 3ANU
PROVIDERS: ADMIT Internal Medicine; ATTEND Internal Medicine

== ENCOUNTER 2021-08-10 16:07 | Inpatient (IN) ==
[2021-08-10] MEDS ORDERED: Melatonin 3 MG TABLET PO PRN (21:28)
[2021-08-10] MEDS ORDERED: Naloxone 0.4 MG/ML INJ IVP PRN (21:28)
[2021-08-10] MEDS ORDERED: levoFLOXacin 750 MG/150 ML 750 MG/150 ML BAG IVPB SCH (22:00)
[2021-08-10] MEDS: 0.9 % Sodium Chloride 1,000 ML IVC SCH (22:41)
[2021-08-11 06:20] LABS: Basophils % 0.1 %; Hematocrit 32.6 % (35.3-44.9); Hemoglobin 10.3 g/dL (11.5-15.4); Immature Granulocytes % 0.4 % (0-4); Lymphocytes # 0.7 K/mcL (0.6-4.6); Lymphocytes % 8.4 %; Mean Corpuscular HGB Conc 31.6 g/dL (31.6-35.5); Mean Corpuscular Hemoglobin 26.3 pg (28.0-33.3); Mean Corpuscular Volume 83.2 fL (83.0-100.0); Mean Platelet Volume 8.7 fL (9.4-12.4); Monocytes # 0.7 K/mcL (0.0-1.3); Monocytes % 8.7 %; Neutrophils # 6.4 K/mcL (1.6-8.9); Platelet Count 199 K/mcL (140-400); Red Blood Count 3.92 M/mcL (3.82-4.97); Red Cell Distribution Width 16.7 % (11.5-14.5); Segmented Neutrophils % 82.4 %; White Blood Count 7.7 K/mcL (4.3-11.1)
[2021-08-11 06:38] LABS: BUN/Creatinine Ratio 9 (6-26); Blood Urea Nitrogen 8 mg/dL (8-23); Calcium 7.7 mg/dL (8.6-10.3); Carbon Dioxide 23 mEq/L (23-29); Chloride 105 mEq/L (98-107); Glucose 115 mg/dL (70-105); Osmolality,Calculated 281 (280-300); Potassium 3.7 mEq/L (3.5-5.1); Sodium 136 mEq/L (136-145); eGFR For African Americans > 60 (> 60); eGFR For Non-African Americans > 60 (> 60)
[2021-08-11] MEDS: 0.9 % Sodium Chloride 1,000 ML IVC SCH (11:29)
[2021-08-11] MEDS ORDERED: *HR* HYDROmorphone PF 0.5 MG/0.5 ML SYRINGE IVP PRN (12:45)
[2021-08-11] MEDS ORDERED: *HR* FentaNYL (PF) 100 MCG/2 ML VIAL ONE (13:11)
[2021-08-11] MEDS ORDERED: Lidocaine -MPF 2% 5 ML VIAL ONE (13:11)
[2021-08-11] MEDS ORDERED: *HR* Midazolam HCl 2 MG/2 ML VIAL ONE (13:11)
[2021-08-11] MEDS ORDERED: *HR* Propofol 200 MG/20 ML VIAL IVP ONE (13:11)
[2021-08-11] MEDS ORDERED: Isovue-300 50ML VIAL ONE (13:12)
[2021-08-11] MEDS ORDERED: Ondansetron 4 MG/2 ML VIAL ONE (13:14)
[2021-08-11] MEDS ORDERED: Melatonin 3 MG TABLET PO PRN (15:02)
[2021-08-11] MEDS ORDERED: Naloxone 0.4 MG/ML INJ IVP PRN (15:02)
[2021-08-11 16:20] LABS: Bacteria,Urine Few per hpf (None-Few); Bilirubin,Urine Negative (Negative); Blood,Urine Large (Negative); Clarity,Urine Turbid (Clear); Color,Urine Yellow (Yellow); Glucose,Urine (UA) Normal (Normal); Ketones,Urine Trace mg/dL (Negative); Leukocyte Esterase,Urine Large (Negative); Mucus,Urine Few per lpf (None-Few); Nitrite,Urine Negative (Negative); Protein,Urine 100 mg/dL (Neg-Trace); RBC,Urine TNTC per hpf (0-3); Specific Gravity,Urine 1.018 (1.010-1.025); Squamous Epithelial Cell,Urine Few per hpf (None-Few); Uric Acid Crystals,Urine Present per hpf; Urobilinogen,Urine Normal (Normal); WBC,Urine TNTC per hpf (0-3)
[2021-08-11] MEDS ORDERED: *HR* Heparin 5,000 UNIT/ML VIAL SQ SCH (18:00)
[2021-08-11] MEDS: *HR* Heparin 5,000 UNIT/ML VIAL SQ SCH (18:34)
[2021-08-11] MEDS: levoFLOXacin 750 MG/150 ML 750 MG/150 ML BAG IVPB SCH (21:43)
[2021-08-12 01:33] LABS: Hematocrit 32.9 % (35.3-44.9); Hemoglobin 10.3 g/dL (11.5-15.4); Mean Corpuscular HGB Conc 31.3 g/dL (31.6-35.5); Mean Corpuscular Hemoglobin 26.6 pg (28.0-33.3); Mean Platelet Volume 9.1 fL (9.4-12.4); Platelet Count 217 K/mcL (140-400); Red Blood Count 3.87 M/mcL (3.82-4.97); Red Cell Distribution Width 16.9 % (11.5-14.5); White Blood Count 4.8 K/mcL (4.3-11.1)
[2021-08-12 01:52] LABS: BUN/Creatinine Ratio 17 (6-26); Blood Urea Nitrogen 17 mg/dL (8-23); Calcium 8.1 mg/dL (8.6-10.3); Carbon Dioxide 20 mEq/L (23-29); Chloride 106 mEq/L (98-107); Glucose 174 mg/dL (70-105); Osmolality,Calculated 286 (280-300); Potassium 4.1 mEq/L (3.5-5.1); Sodium 135 mEq/L (136-145); eGFR For African Americans > 60 (> 60); eGFR For Non-African Americans 56 (> 60)
[2021-08-12] MEDS: *HR* Heparin 5,000 UNIT/ML VIAL SQ SCH ×2 (05:58→19:14)
[2021-08-12] MEDS ORDERED: Fluticasone Propionate Nasal 50 MCG/SPRAY BOTTLE NS PRN (09:00)
[2021-08-12] MEDS: Folic Acid 1 MG TABLET PO SCH (09:24)
[2021-08-12] MEDS: Furosemide 20 MG TABLET PO SCH (09:25)
[2021-08-12] MEDS: Gabapentin 300 MG CAPSULE PO SCH ×2 (09:25→20:35)
[2021-08-12] MEDS: amLODIPine 5 MG TABLET PO SCH (09:25)
[2021-08-12] MEDS ORDERED: Albuterol 2.5 MG/3 ML NEBULIZER IH PRN (11:37)
[2021-08-12] MEDS: levoFLOXacin 750 MG/150 ML 750 MG/150 ML BAG IVPB SCH (20:35)
[2021-08-13 06:29] LABS: Hemoglobin 10.2 g/dL (11.5-15.4); Mean Corpuscular HGB Conc 30.9 g/dL (31.6-35.5); Mean Corpuscular Hemoglobin 25.9 pg (28.0-33.3); Mean Corpuscular Volume 83.8 fL (83.0-100.0); Mean Platelet Volume 10.5 fL (9.4-12.4); Platelet Count 214 K/mcL (140-400); Red Blood Count 3.94 M/mcL (3.82-4.97); Red Cell Distribution Width 16.7 % (11.5-14.5); White Blood Count 6.4 K/mcL (4.3-11.1)
[2021-08-13] MEDS: *HR* Heparin 5,000 UNIT/ML VIAL SQ SCH (06:48)
[2021-08-13 06:49] LABS: BUN/Creatinine Ratio 27 (6-26); Blood Urea Nitrogen 22 mg/dL (8-23); Calcium 8.4 mg/dL (8.6-10.3); Carbon Dioxide 23 mEq/L (23-29); Chloride 111 mEq/L (98-107); Glucose 104 mg/dL (70-105); Osmolality,Calculated 284 (280-300); Sodium 135 mEq/L (136-145); eGFR For African Americans > 60 (> 60); eGFR For Non-African Americans > 60 (> 60)
[2021-08-13] MEDS ORDERED: cefTRIAXone 1,000 MG in Water for inj. (sterile) 10 ML IVP SCH (09:00)
[2021-08-13 09:40] VITALS: O2SAT 94
[2021-08-13] MEDS: Furosemide 20 MG TABLET PO SCH (09:40)
[2021-08-13] MEDS: amLODIPine 5 MG TABLET PO SCH (09:41)
[2021-08-13] MEDS: Folic Acid 1 MG TABLET PO SCH (09:41)
[2021-08-13] MEDS: Gabapentin 300 MG CAPSULE PO SCH (09:41)
[2021-08-13 12:37] VITALS: BP 131/84; PULSE 94; TEMP 97.8
== END 2021-08-13 17:26 | disposition home or self-care (01) | DRG 463 ==
LOC: 3ANU → SUATTDRO 21:02
PROVIDERS: ADMIT Pharmacist; ATTEND Internal Medicine

== ENCOUNTER 2022-03-21 15:27 | Observation (INO) ==
[2022-03-21] MEDS ORDERED: Naloxone 0.4 MG/ML INJ IVP PRN (18:27)
[2022-03-21] MEDS ORDERED: Ondansetron 4 MG/2 ML VIAL IVP PRN (18:27)
[2022-03-21] MEDS ORDERED: *HR* Metoprolol 5 MG/5 ML VIAL IVP PRN (18:29)
[2022-03-21] MEDS ORDERED: Levalbuterol Neb 1.25 MG/3 ML IH PRN (18:32)
[2022-03-21 19:25] LABS: Basophils % 0.1 %; Hematocrit 35.8 % (35.3-44.9); Hemoglobin 11.3 g/dL (11.5-15.4); Immature Granulocytes % 1.2 % (0-4); Lymphocytes # 0.6 K/mcL (0.6-4.6); Lymphocytes % 2.7 %; Mean Corpuscular HGB Conc 31.6 g/dL (31.6-35.5); Mean Corpuscular Hemoglobin 26.8 pg (28.0-33.3); Mean Corpuscular Volume 84.8 fL (83.0-100.0); Mean Platelet Volume 8.4 fL (9.4-12.4); Monocytes # 1.8 K/mcL (0.0-1.3); Monocytes % 7.6 %; Neutrophils # 20.6 K/mcL (1.6-8.9); Platelet Count 271 K/mcL (140-400); Red Blood Count 4.22 M/mcL (3.82-4.97); Red Cell Distribution Width 15.9 % (11.5-14.5); Segmented Neutrophils % 88.4 %; White Blood Count 23.3 K/mcL (4.3-11.1)
[2022-03-21 19:30] LABS: Prothrombin Time 11.5 Seconds (9.4-12.1)
[2022-03-21 19:46] LABS: Calcium 8.1 mg/dL (8.6-10.3); Potassium 4.2 mEq/L (3.5-5.1)
[2022-03-21] MEDS ORDERED: Ertapenem 1,000 MG in 0.9 % Sodium Chloride Mini Bag 100 ML IVPB SCH (20:00)
[2022-03-21] MEDS ORDERED: Magnesium Sulfate 1 GM/102 ML PIGGYBACK IVPB ONE (20:58)
[2022-03-21] MEDS ORDERED: Albuterol 2.5 MG/3 ML NEBULIZER IH PRN (21:25)
[2022-03-21] MEDS: Gabapentin 300 MG CAPSULE PO SCH (21:26)
[2022-03-21] MEDS: Acetaminophen 325 MG TABLET PO PRN (21:26)
[2022-03-21] MEDS: 0.9 % Sodium Chloride 1,000 ML IVC SCH (23:33)
[2022-03-22] MEDS: Acetaminophen 325 MG TABLET PO PRN ×2 (04:20→14:05)
[2022-03-22] MEDS ORDERED: Cefepime HCl 1,000 MG in 0.9 % Sodium Chloride 10 ML IVP SCH (06:00)
[2022-03-22] MEDS: 0.9 % Sodium Chloride 1,000 ML IVC SCH (08:19)
[2022-03-22] MEDS ORDERED: Isovue-300 50ML VIAL ONE (08:21)
[2022-03-22] MEDS: Gabapentin 300 MG CAPSULE PO SCH ×3 (08:22→20:57)
[2022-03-22 09:06] LABS: Basophils % 0.2 %; Eosinophils # 0.2 K/mcL (0.0-0.6); Eosinophils % 1.1 %; Hematocrit 32.5 % (35.3-44.9); Hemoglobin 9.8 g/dL (11.5-15.4); Immature Granulocytes % 0.4 % (0-4); Lymphocytes # 1.4 K/mcL (0.6-4.6); Lymphocytes % 8.4 %; Mean Corpuscular HGB Conc 30.2 g/dL (31.6-35.5); Mean Corpuscular Hemoglobin 26.1 pg (28.0-33.3); Mean Corpuscular Volume 86.4 fL (83.0-100.0); Mean Platelet Volume 8.8 fL (9.4-12.4); Monocytes # 1.4 K/mcL (0.0-1.3); Monocytes % 8.1 %; Neutrophils # 13.9 K/mcL (1.6-8.9); Platelet Count 276 K/mcL (140-400); Red Blood Count 3.76 M/mcL (3.82-4.97); Red Cell Distribution Width 16.5 % (11.5-14.5); Segmented Neutrophils % 81.8 %
[2022-03-22] MEDS ORDERED: Nitroglycerin 0.4 MG TAB.SUBL SL PRN ×2 (09:06→11:04)
[2022-03-22] MEDS ORDERED: Naloxone 0.4 MG/ML INJ IVP PRN ×2 (09:06→11:04)
[2022-03-22] MEDS ORDERED: Ondansetron 4 MG/2 ML VIAL IVP PRN ×2 (09:06→11:04)
[2022-03-22] MEDS ORDERED: Ipratropium Neb 0.5 MG NEBULIZER IH PRN ×2 (09:06→11:04)
[2022-03-22] MEDS ORDERED: Albuterol 2.5 MG/3 ML NEBULIZER IH PRN ×2 (09:06→11:04)
[2022-03-22 09:09] LABS: Calcium 7.6 mg/dL (8.6-10.3); Magnesium 1.9 mg/dL (1.6-2.6); Potassium 4.2 mEq/L (3.5-5.1)
[2022-03-22] MEDS ORDERED: *HR* Propofol 200 MG/20 ML VIAL IVP ONE (09:20)
[2022-03-22] MEDS ORDERED: Lidocaine -MPF 2% 2 ML VIAL ONE (09:20)
[2022-03-22] MEDS ORDERED: *HR* Midazolam HCl 2 MG/2 ML VIAL ONE (09:20)
[2022-03-22] MEDS ORDERED: Ondansetron 4 MG/2 ML VIAL ONE (10:00)
[2022-03-22] MEDS ORDERED: Levalbuterol Neb 1.25 MG/3 ML IH PRN (11:04)
[2022-03-22] MEDS ORDERED: 0.9 % Sodium Chloride 1,000 ML IVC SCH ×2 (11:04→11:30)
[2022-03-22] MEDS ORDERED: *HR* Metoprolol 5 MG/5 ML VIAL IVP PRN (11:04)
[2022-03-22] MEDS: Cefepime HCl 1,000 MG in 0.9 % Sodium Chloride 10 ML IVP SCH (17:51)
[2022-03-22] MEDS ORDERED: Gabapentin 300 MG CAPSULE PO SCH (21:00)
[2022-03-23] MEDS: Cefepime HCl 1,000 MG in 0.9 % Sodium Chloride 10 ML IVP SCH ×2 (06:20→17:46)
[2022-03-23] MEDS: Gabapentin 300 MG CAPSULE PO SCH ×3 (08:50→20:50)
[2022-03-23] MEDS: amLODIPine 5 MG TABLET PO SCH (08:50)
[2022-03-23] MEDS ORDERED: Furosemide 20 MG TABLET PO SCH (09:00)
[2022-03-23 10:58] LABS: Bacteria,Urine Few per hpf (None-Few); Bilirubin,Urine Negative (Negative); Blood,Urine Moderate (Negative); Clarity,Urine Turbid (Clear); Color,Urine Light-Yellow (Yellow); Glucose,Urine (UA) Normal (Normal); Hyaline Casts,Urine Few per lpf (None Seen); Ketones,Urine Negative (Negative); Leukocyte Esterase,Urine Large (Negative); Mucus,Urine Few per lpf (None-Few); Nitrite,Urine Negative (Negative); PH,Urine 6.5 pH Units (5.0-8.0); Protein,Urine 100 mg/dL (Neg-Trace); RBC,Urine 50-100 per hpf (0-3); Specific Gravity,Urine 1.011 (1.010-1.025); Squamous Epithelial Cell,Urine Few per hpf (None-Few); Urobilinogen,Urine Normal (Normal); WBC,Urine TNTC per hpf (0-3)
[2022-03-23] MEDS: Acetaminophen 325 MG TABLET PO PRN (11:08)
[2022-03-23] MEDS ORDERED: tiZANidine 4 MG TABLET PO PRN (11:57)
[2022-03-23] MEDS ORDERED: Fluticasone Propionate Nasal 50 MCG/SPRAY BOTTLE NS PRN (11:57)
[2022-03-23 12:15] LABS: Basophils % 0.1 %; Eosinophils # 0.2 K/mcL (0.0-0.6); Eosinophils % 2.1 %; Hematocrit 30.5 % (35.3-44.9); Hemoglobin 9.5 g/dL (11.5-15.4); Immature Granulocytes % 0.3 % (0-4); Lymphocytes % 10.7 %; Mean Corpuscular HGB Conc 31.1 g/dL (31.6-35.5); Mean Corpuscular Hemoglobin 27.1 pg (28.0-33.3); Mean Corpuscular Volume 87.1 fL (83.0-100.0); Mean Platelet Volume 8.5 fL (9.4-12.4); Monocytes # 0.6 K/mcL (0.0-1.3); Monocytes % 6.5 %; Neutrophils # 7.2 K/mcL (1.6-8.9); Platelet Count 226 K/mcL (140-400); Red Cell Distribution Width 16.5 % (11.5-14.5); Segmented Neutrophils % 80.3 %
[2022-03-23 12:35] LABS: BUN/Creatinine Ratio 14 (6-26); Blood Urea Nitrogen 13 mg/dL (8-23); Calcium 7.7 mg/dL (8.6-10.3); Carbon Dioxide 25 mEq/L (23-29); Chloride 107 mEq/L (98-107); Glucose 130 mg/dL (70-105); Osmolality,Calculated 286 (280-300); Potassium 3.9 mEq/L (3.5-5.1); Sodium 137 mEq/L (136-145); eGFR For African Americans > 60 (> 60); eGFR For Non-African Americans 59 (> 60)
[2022-03-23] MEDS: Ipratropium 1 PUFF INHALER IH SCH ×2 (16:24→22:54)
[2022-03-24] MEDS: Ipratropium 1 PUFF INHALER IH SCH ×2 (04:12→09:55)
[2022-03-24] MEDS: Cefepime HCl 1,000 MG in 0.9 % Sodium Chloride 10 ML IVP SCH (04:55)
[2022-03-24 05:37] LABS: Basophils % 0.3 %; Eosinophils # 0.2 K/mcL (0.0-0.6); Eosinophils % 2.9 %; Hemoglobin 9.3 g/dL (11.5-15.4); Immature Granulocytes % 0.4 % (0-4); Lymphocytes # 1.1 K/mcL (0.6-4.6); Lymphocytes % 14.6 %; Mean Corpuscular Hemoglobin 26.6 pg (28.0-33.3); Mean Platelet Volume 8.5 fL (9.4-12.4); Monocytes # 0.5 K/mcL (0.0-1.3); Monocytes % 6.6 %; Neutrophils # 5.7 K/mcL (1.6-8.9); Platelet Count 243 K/mcL (140-400); Red Blood Count 3.49 M/mcL (3.82-4.97); Red Cell Distribution Width 16.4 % (11.5-14.5); Segmented Neutrophils % 75.2 %; White Blood Count 7.5 K/mcL (4.3-11.1)
[2022-03-24 05:56] LABS: BUN/Creatinine Ratio 15 (6-26); Blood Urea Nitrogen 15 mg/dL (8-23); Calcium 8.1 mg/dL (8.6-10.3); Carbon Dioxide 25 mEq/L (23-29); Chloride 108 mEq/L (98-107); Glucose 109 mg/dL (70-105); Osmolality,Calculated 281 (280-300); Potassium 3.9 mEq/L (3.5-5.1); Sodium 135 mEq/L (136-145); eGFR For African Americans > 60 (> 60); eGFR For Non-African Americans 54 (> 60)
[2022-03-24 07:58] VITALS: BP 116/71; PULSE 86; TEMP 97.6; O2SAT 95
[2022-03-24] MEDS: amLODIPine 5 MG TABLET PO SCH (08:35)
[2022-03-24] MEDS: Gabapentin 300 MG CAPSULE PO SCH (08:35)
[2022-03-24] MEDS ORDERED: Folic Acid 1 MG TABLET PO SCH (09:00)
== END 2022-03-24 12:45 | disposition home or self-care (01) ==
LOC: 3ANU → SUATTDRO 17:25
PROVIDERS: ADMIT Student in an Organized Health Care Education/Training Program; ATTEND Internal Medicine